=== PATIENT | female | born 1940 ===

== ENCOUNTER 2025-05-12 18:53 | Emergency (ER) | payer MEDICARE, MEDICAID, SELFPAY ==
[2025-05-12 18:59] VITALS: BP 114/90; PULSE 68; RESP 16; TEMP 36.4; O2SAT 100
[2025-05-12 21:06] VITALS: BP 112/67; PULSE 71; O2SAT 98
--- NOTE | 2025-05-12 21:23 | PC.NURSE ---
Pt POA at bedside declines for pt to be seen by a provider. States the Detention sent here here without consulting me. She is a DNR. I dont feel she needs to be seen, she wants to go home and go to bed. She isnt acting abnormal, she is not complaining. We dont want to be seen. Pt assisted via w/c to car, NAD at time of departure.
--- OUTSIDE RECORDS SUMMARY | 2025-05-12 21:39 | XMS_ITS | Continuity of Care Document ---
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 [address], [place], [place], [id number], [place]. tel:[phone] Family History Family Member Type Diagnosis Age At Onset No Information Payers Payer name Insurance type Covered green party ID Authoriza tion(s) [facility] Commercial CI [id number] Medicare [facility] [id number] Social History Type Description Quantity Date Captured Comments Sex Female Smoking Status No Information Chief Complaint And Reason For Visit No Information Reason For Referral Reason For Referral No Information History Of Present Illness Encounter Date Complaint History Of Prese nt Illness No Information Functional Status Date Functional Assessmen t No Information Instructions Date Instruction Additional Infor mation No Information Assessments Type Assessment Date No Information Patient Care Teams Name Effective Dates (start - stop) Status Members No Information
== END 2025-05-12 22:06 | disposition left against medical advice (07) ==
LOC: ANHED 21:38
DX: S00.83XA Contusion of other part of head, initial encounter (principal); W19.XXXA Unspecified fall, initial encounter
CPT/HCPCS: 99199